=== PATIENT | female | born 1995 | race African-American/Black ===

== ENCOUNTER 2017-07-10 13:08 | Emergency (ER) | payer OTHER ==
[~2017-07-10] VITALS: Ht 167.6 cm; Wt 62.6 kg
[~2017-07-10 13:08] MED LIST: NORCO 5-325 TA1 EACH PO; ZOFRAN4 MG PO
[2017-07-10] MEDS ORDERED: ERYTHROMYCIN E3.5 G2 OPHTHALMIC (15:29)
== END 2017-07-10 15:37 | disposition home or self-care (01) ==
LOC: ER 13:08
DX: S05.02XA Injury of conjunctiva and corneal abrasion without foreign body, left eye, initial encounter (principal); H10.9 Unspecified conjunctivitis; F17.210 Nicotine dependence, cigarettes, uncomplicated; X58.XXXA Exposure to other specified factors, initial encounter; Y93.89 Activity, other specified; Y92.89 Other specified places as the place of occurrence of the external cause; Y99.8 Other external cause status